=== PATIENT | male | born 1950 | race African-American/Black ===

== ENCOUNTER 2023-09-30 16:00 | Outpatient (CLI) | payer MEDICARE, OTHER | END 2023-09-30 16:01 | disposition home or self-care (01) | LOC: SLEEPLAB 16:00 | PROVIDERS: ATTEND Nurse Practitioner Family | DX: G47.33 Obstructive sleep apnea (adult) (pediatric) (principal); G47.31 Primary central sleep apnea | CPT/HCPCS: 95811 ==